=== PATIENT | female | born 1955 | race Caucasian/White ===

== ENCOUNTER 2019-12-03 00:13 | Outpatient (CLI) | payer OTHER, SELFPAY ==
[2019-12-03 18:54] LABS: SARS-CoV-2 RNA PCR Negative
== END 2019-12-03 00:14 | disposition home or self-care (01) ==
LOC: ANHCOVIDDT 00:13
PROVIDERS: PCP Family Medicine Adolescent Medicine; Visit Provider Internal Medicine Gastroenterology
DX: Z01.818 Encounter for other preprocedural examination (principal); Z11.59 Encounter for screening for other viral diseases
CPT/HCPCS: 87635; C9803; U0003

== ENCOUNTER → 2020-11-19 11:17 | Outpatient (CLI) | payer OTHER, SELFPAY ==
--- NOTE | ~2020-11-19 | MM_ITS ---
EXAMINATION: MM screening [facility] BI w alex HISTORY: Screening mammogram TECHNIQUE: Craniocaudal and mediolateral oblique 3-D tomosynthesis images were obtained and synthetic 2-D images were generated. CAD analysis was submitted and interpreted. COMPARISON: 12/19/2017, 06/21/2016 BREAST PARENCHYMAL COMPOSITION: There are scattered areas of fibroglandular density. FINDINGS: RIGHT BREAST: There is no evidence of suspicious mass, calcification, or architectural distortion to suggest malignancy. There has been no significant interval change. LEFT BREAST: An asymmetry is present in the middle third of the upper breast 7 cm from the nipple on the mediolateral oblique view. IMPRESSION: 1. Left breast asymmetry. 2. Additional mammographic views and possible breast ultrasound are recommended. BI-RADS Category 0: Incomplete: Needs additional imaging evaluation. Reviewed, dictated and finalized at location A. IMPRESSION: 1. Left breast asymmetry. 2. Additional mammographic views and possible breast ultrasound are recommended . BI-RADS Category 0: Incomplete: Needs additional imaging evaluation.
== END ==
PROVIDERS: PCP Family Medicine Adolescent Medicine; Visit Provider Family Medicine Adolescent Medicine
DX: Z12.31 Encounter for screening mammogram for malignant neoplasm of breast (principal); R92.8 Other abnormal and inconclusive findings on diagnostic imaging of breast
CPT/HCPCS: 77063; 77067

== ENCOUNTER → 2020-12-18 07:46 | Outpatient (CLI) | payer OTHER, SELFPAY ==
--- NOTE | ~2020-12-18 | MM_ITS ---
EXAMINATION: MM diagnostic mammo unilat LT HISTORY: Left breast asymmetry on screening mammogram TECHNIQUE: Additional 3-D tomosynthesis images of the left breast were performed and synthetic 2-D im ages were generated. CAD analysis was submitted and interpreted. COMPARISON: 11/19/2020, 12/19/2017, 06/21/2016 FINDINGS: There is a return to baseline fibroglandular appearance with spot compression of the left b reast in the area questioned on screening mammogram. IMPRESSION: 1. No mammographic evidence of malignancy. 2. Recommend routine screening mammography in one year. BI-RADS Category 1: Negative Reviewed, dictated and finalized at location A.
== END ==
PROVIDERS: PCP Family Medicine Adolescent Medicine; Visit Provider Physician Assistant
DX: N64.89 Other specified disorders of breast (principal)
CPT/HCPCS: 77065

== ENCOUNTER 2021-01-20 01:54 | Day surgery (SDC) | payer OTHER, SELFPAY ==
[2021-01-19 10:45] VITALS: BMI 32.6
[2021-01-20] VITALS (9 sets, daily range): BP systolic 124–153; BP diastolic 72–86; PULSE 59–70; RESP 15–19; TEMP 36.2–36.4; O2SAT 94–98; BMI 34.0
--- NOTE | 2021-01-20 08:49 | P.SEDATION_ITS ---
Moderate Sedation Note-Pt Data Patient Data Allergies Allergy/AdvReac Type Severity Reaction Status Date / Time iodine Allergy Unknown difficulty Verified 11/29/19 09:15 breathy, hives Contrast Media Allergy Unknown Difficulty Uncoded 11/29/19 09:15 Breathing, hives Home Medications Medication Instructions Recorded Confirmed Type amlodipine 5 mg tablet 5 mg PO DAILY 06/12/19 01/19/21 History lisinopril 40 mg tablet 40 mg PO DAILY 06/12/19 01/19/21 History metoprolol succinate 100 mg 100 mg PO DAILY 06/12/19 01/19/21 History capsule sprinkle, ext. release 24 hr atorvastatin 10 mg PO DAILY 11/29/19 01/19/21 History cetirizine [Zyrtec] 10 mg PO DAILY 11/29/19 01/19/21 History levothyroxine 100 mcg PO DAILY 11/29/19 01/19/21 History lifitegrast [Xiidra] 1 drp OPHTHALMIC (EYE) BID 11/29/19 01/19/21 History isosorbide mononitrate [Imdur] 30 mg PO DAILY 01/19/21 01/19/21 History Current Medications: Active Medications Sodium Chloride (Normal Saline Iv) 500 mls @ 100 mls/hr IV CONT .Q5H ALYX Sedation/Anesthesia: No previous sedation/anesthesia problems (including family history). [facility] Past Medical History Medical History Hypertension Surgical History Surgical History History of arthroscopy of knee -2008,2010, , History of cholecystectomy Family History Family History Father Family history of diabetes mellitus in first degree relative Cancer Mother Hypertension Heart disease Social History Social History Smoking status: Never smoker Alcohol intake: never Substance use type: does not use Living arrangements: alone Gender identity (if verbalized by the patient): Female Sexual Orientation (if Verbalized by the Patient): Straight or Heterosexual Spiritual care concerns: No Mod Sed Physical Exam Physical Exam Pre Procedural Exam: Normal: Airway Hours since solid foods: 10 Hours since liquid intake: 10 Mallampati Classification: class II Internal Medicine - PN: Obj Da Vital Signs Vital Signs: Vital Signs - 24 hr 01/20/21 07:35 Temperature 36.4 C L Pulse Rate 66 Respiratory Rate 18 Blood Pressure 140/86 Pulse Oximetry 98 Meds/Results Medications: Active Medications Generic Name Dose Route Start Last Admin Trade Name Freq PRN Reason Stop Dose Admin Sodium Chloride 500 mls @ 100 mls/hr 01/20/21 07:00 Normal Saline Iv IV CONT .Q5H [facility] ASA Classification/Sedation ASA Classification/Sedation ASA Class: II Emergent: No Risks: Risks, benefits and alternatives explained and patient/family accepted plan for sedation. Patient re-evaluated immediately prior to sedation.
--- NOTE | 2021-01-20 08:49 | WPDHPUPDATE1 ---
History and Physical Update Update Date/Time: 01/20/21 08:49 History and Physical has been reviewed, including an updated exam of the patient. There are NO changes in the patient's condition. Risks, benefits, and alternatives have been discussed and questions answered. Patient agrees to proceed with procedure.
--- NOTE | 2021-01-20 09:15 | WPDCARDPROC ---
Cardiac Cath Procedure Note Date of procedure:: 01/20/21 Performing physician:: Chai Chacon MD Procedure Procedure note:: LEFT HEART CATHETERIZATION AND CORONARY ANGIOGRAM REPORT DATE OF PROCEDURE: 01/20/2021 INDICATION FOR PROCEDURE: Recurrent chest pain, abnormal MPI BRIEF CLINICAL HISTORY: 65-year-old female with hypertension, type 2 diabetes mellitus, dyslipidemia. Patient has been experiencing symptoms of chest pain since March 2019. She had MPI done on 11/30/2019 which reportedly showed normal LVEF, mild, small reversible defect in the mid anterior segment and apical anterior segment. Patient was initially managed medically, however, she continued to have recurrent chest discomfort despite being on optimal medical treatment including anti anginal medications. Due to recurrent chest discomfort, coronary angiogram was recommended to rule out significant obstructive CAD. Benefits and risks of the procedure were discussed with the patient in depth, and informed consent was obtained prior to the procedure. Risks of the procedure include but are not limited to vascular complications including groin hematoma, retroperitoneal bleed, vessel perforation; periprocedural [place], cardiac arrhythmias, stroke, contrast induced nephropathy, and . After discussing all the benefits, risks and alternatives, patient was willing to proceed with the procedure. PROCEDURES PERFORMED: 1. Left heart catheterization- Selective left and right coronary angiogram; left ventriculogram and hemodynamic assessment 2. Selective right common femoral angiogram and deployment of Angio-Seal hemostatic device 3. Moderate sedation-CPT code 84901 MODERATE SEDATION: Midazolam 2 mg; fentanyl 50 mcg; Start time 0842 , Stop time 0910 ; Total [id number] time 28 minutes; Roxie Billy RN was trained observer for moderate sedation. ACCESS SITE: Right common femoral artery PROCEDURE NOTE: After obtaining informed consent, patient was brought to catheterization lab and prepped and draped in a usual sterile manner. After local anesthesia with lidocaine, right common femoral artery access was taken with micropuncture needle followed by insertion of a 6 Japanese sheath. Selective left and right coronary angiogram was performed using 5 Japanese JL4 and JR4 catheters respectively. Orthogonal views were taken. Next, a 5 Japanese pigtail catheter was advanced in the LV cavity and was flushed with normal saline. LV pressure measurement was performed. After this, left ventriculogram was performed. The catheter was flushed again, and gradient across the aortic valve was measured on the pullback of the catheter. Finally, selective right common femoral angiogram was performed followed by successful deployment of Angio-Seal vascular closure device. Patient tolerated procedure well without any immediate procedure related complications. FINDINGS: LEFT MAIN CORONARY: The left main coronary artery is a large caliber, relatively short vessel without significant focal stenosis. LEFT ANTERIOR DESCENDING ARTERY: The LAD is a medium to large caliber, tortuous vessel, tapers distally and reaches LV apex. No significant focal stenosis seen in the LAD or its diagonal branches. LEFT CIRCUMFLEX ARTERY: The left circumflex artery is a large caliber, codominant vessel; gives rise to large caliber tortuous OM branch and LPDA without significant focal stenosis. RIGHT CORONARY ARTERY: A medium caliber vessel, gives rise to small to medium caliber PDA and PLV branches which are very tortuous . RCA and its branches are without significant focal stenosis. LEFT VENTRICULOGRAM: frequent ventricular ectopy was seen during left ventriculogram, ejection fraction more than 70%. LVEDP 13 mmHg. HEMODYNAMIC ASSESSMENT: Opening pressure 133/67 mmHg , closing pressure 149/64 mmHg , LVEDP 13 mmHg , no significant gradient across aortic valve on the pullback of pigtail catheter. RIGHT COMMON FEMORAL ARTERY: Pa
--- NOTE | 2021-01-20 10:43 | SUR.PHASEII ---
Lunch ordered for patient as requested.
--- NOTE | 2021-01-20 13:05 | SUR.PHASEII ---
DISCHARGE INSTRUCTIONS GIVEN AND REVIEWED W/ PT. QUESTIONS ANSWERED. VOICED UNDERSTANDING OF ALL. NO CHANGE IN STATUS OF R. GROIN SITE. R. PEDAL PULSE PALP STRONG. DISCHARGED HOME, OUT VIA WC WITH ALL PERSONAL BELONGINGS AND DISCHARGE PACKET TO DAUGHTER'S WAITING CAR.
== END 2021-01-20 13:05 | disposition home or self-care (01) ==
PROVIDERS: PCP Family Medicine Adolescent Medicine; Visit Provider Internal Medicine Cardiovascular Disease
PROC: 4A023N7 Measurement of Cardiac Sampling and Pressure, Left Heart, Percutaneous Approach (ICD-10-PCS; CPT 93452; principal; 2021-01-20 08:30)
DX: I77.1 Stricture of artery (principal); R07.89 Other chest pain; I10 Essential (primary) hypertension; E78.5 Hyperlipidemia, unspecified; E11.9 Type 2 diabetes mellitus without complications; Z90.49 Acquired absence of other specified parts of digestive tract; I20.9 Angina pectoris, unspecified; Z79.82 Long term (current) use of aspirin
CPT/HCPCS: 93458; C1760; C1887; C1894; G0269; J1644; J2250; J3010; J7040

== ENCOUNTER 2021-06-22 00:13 | Day surgery (SDC) | payer OTHER, SELFPAY ==
[2021-06-10 09:29] VITALS: BMI 33.4
[2021-06-22 11:17] VITALS: BP 143/82; PULSE 54; RESP 16; TEMP 37.1; O2SAT 99; BMI 33.3
--- NOTE | 2021-06-22 11:26 | WPDANESEPPF ---
Anes - Initial Pre Proc Eval Procedure: Operation Date: 06/22/21 12:30 Proposed Procedures p Screening Colonoscopy - Jeronimo Chavira MD Date/Time: 06/22/21 11:26 Surgeon: Jeronimo Chavira MD Pre Op Diagnosis: family hx of colon ca Patient Data Age: 66 Gender: F Height: 1.6 m Weight: 85.4 kg Last Vital Signs Temp 37.1 C 06/22/21 11:17 Pulse 54 L 06/22/21 11:17 Resp 16 06/22/21 11:17 BP 143/82 H 06/22/21 11:17 Pulse Ox 99 06/22/21 11:17 Allergies Allergy/AdvReac Type Severity Reaction Status Date / Time iodine Allergy Severe difficulty Verified 06/22/21 11:16 breathy, hives Contrast Media Allergy Unknown Difficulty Uncoded 06/22/21 11:16 Breathing, hives Home Medications Medication Instructions Recorded Confirmed Type amlodipine 5 mg tablet 5 mg PO DAILY 06/12/19 06/22/21 History lisinopril 40 mg tablet 40 mg PO DAILY 06/12/19 06/22/21 History metoprolol succinate 100 mg 100 mg PO DAILY 06/12/19 06/22/21 History capsule sprinkle, ext. release 24 hr Xiidra 1 drp OPHTHALMIC (EYE) BID 11/29/19 06/22/21 History Zyrtec 10 mg PO DAILY 11/29/19 06/22/21 History levothyroxine 100 mcg PO DAILY 11/29/19 06/22/21 History isosorbide mononitrate 30 mg PO DAILY 01/19/21 06/22/21 History aspirin 81 mg PO DAILY 06/10/21 06/22/21 History atorvastatin 40 mg PO DAILY 06/10/21 06/22/21 History meloxicam 15 mg PO DAILY 06/10/21 06/22/21 History Patient hx anesthesia problems: none Family hx anesthesia problems: none Results Review: All pre-operative results and documents have been reviewed as part of the pre-operative evaluation. [facility] [place] Past Medical History Medical History (Updated 06/22/21 @ 11:28 by Parrish Beach MD) Hyperlipidemia Hypertension Obesity Surgical History Surgical History History of arthroscopy of knee -2008,2010, -2010, History of cholecystectomy Family History Family History Father Family history of diabetes mellitus in first degree relative Cancer Mother Hypertension Heart disease Social History Social History Smoking status: Never smoker Alcohol intake: never Substance use: never Substance use type: does not use Living arrangements: alone Gender identity (if verbalized by the patient): Female Sexual Orientation (if Verbalized by the Patient): Straight or Heterosexual Spiritual care concerns: No Anes - Eval Final PreProcedure Day of Procedure 06/22/21 11:26 Patient weight: obese Heart: regular rate and rhythm Lungs: clear to auscultation Airway: Mallampati scale class II Neurological: alert and oriented Last oral intake: >/= 8 hours ASA classification: III Emergent: no Anesthetic plan: proceed Anesthesia type and monitoring: general GIVS and standard monitoring Results Review: All pre-operative results and documents have been reviewed as part of the pre-operative evaluation. Informed Consent: The patient's anesthetic plan and its attendant risks and benefits were discussed with the patient/family/POA. Questions were solicited and answers provided to the satisfaction of the patient/family/POA.
[2021-06-22] MEDS: LACTATED RINGERS 1,000 ML 150 ML IV CONT (11:27)
--- NOTE | 2021-06-22 11:36 | WPDGICN ---
Assessment and Plan Assessment and plan (1) Family hx of colon cancer: Code(s): Z80.0 - Family history of malignant neoplasm of digestive organs Status: Acute Assessment and Plan: Patient has a family history of colon cancer with to close family members having cancer of the colon. Plan is for surveillance colonoscopy now and suggested a 5 year intervals. GI Consult Note Consult date/time: 06/22/21 11:36 HPI: Judith Marks is a 66 year old female Presents for screening colonoscopy. Patient's current weight appetite bowel movements are normal. Her family history is significant for 2 close family members with colon cancer. Patient's most recent colonoscopy 2014 was unremarkable. Patient states that her current weight appetite bowel movements are normal. She denies abdominal pain. She has had no bleeding. Review of Systems Review of Systems: All systems reviewed & are unremarkable except as noted in HPI and below PMFSH Past Medical History Medical History (Updated 06/22/21 @ 11:38 by Jeronimo Chavira MD) Hyperlipidemia Hypertension Obesity Surgical History Surgical History History of arthroscopy of knee 7-2008,6- 2010, -2010, History of cholecystectomy Family History Family History Father Family history of diabetes mellitus in first degree relative Cancer Mother Hypertension Heart disease Social History Social History Smoking status: Never smoker Alcohol intake: never Substance use: never Substance use type: does not use Living arrangements: alone Gender identity (if verbalized by the patient): Female Sexual Orientation (if Verbalized by the Patient): Straight or Heterosexual Spiritual care concerns: No Meds Home Medications and Allergies Home Medications Medication Instructions Recorded Confirmed Type amlodipine 5 mg tablet 5 mg PO DAILY 06/12/19 06/22/21 History lisinopril 40 mg tablet 40 mg PO DAILY 06/12/19 06/22/21 History metoprolol succinate 100 mg 100 mg PO DAILY 06/12/19 06/22/21 History capsule sprinkle, ext. release 24 hr Xiidra 1 drp OPHTHALMIC (EYE) BID 11/29/19 06/22/21 History Zyrtec 10 mg PO DAILY 11/29/19 06/22/21 History levothyroxine 100 mcg PO DAILY 11/29/19 06/22/21 History isosorbide mononitrate 30 mg PO DAILY 01/19/21 06/22/21 History aspirin 81 mg PO DAILY 06/10/21 06/22/21 History atorvastatin 40 mg PO DAILY 06/10/21 06/22/21 History meloxicam 15 mg PO DAILY 06/10/21 06/22/21 History Allergies Allergy/AdvReac Type Severity Reaction Status Date / Time iodine Allergy Severe difficulty Verified 06/22/21 11:16 breathy, hives Contrast Media Allergy Unknown Difficulty Uncoded 06/22/21 11:16 Breathing, hives Vital Signs Vital Signs - 24 hr 06/22/21 11:17 Temperature 98.7 F Pulse Rate 54 L Respiratory Rate 16 Blood Pressure 143/82 H Pulse Oximetry 99 Exam Narrative: Physical exam reveals patient to be alert. Vital signs stable. HEENT exam is unremarkable. Patient is anicteric. Heart is without murmur or extra sounds. Abdominal exam bowel sounds are present soft nontender with no hepatosplenomegaly. Digital external rectal exam is normal.
[2021-06-22 12:04] VITALS: BP 99/56; PULSE 54; RESP 16; O2SAT 95
[2021-06-22 12:14] VITALS: BP 104/63; PULSE 52; RESP 21; O2SAT 97
[2021-06-22 12:24] VITALS: BP 125/70; PULSE 50; RESP 21; O2SAT 97
== END 2021-06-22 12:45 | disposition home or self-care (01) ==
PROVIDERS: PCP Family Medicine Adolescent Medicine; Visit Provider Internal Medicine Gastroenterology
PROC: 0DJD8ZZ Inspection of Lower Intestinal Tract, Via Natural or Artificial Opening Endoscopic (ICD-10-PCS; CPT 45378; principal; 2021-06-22 12:30)
DX: Z12.11 Encounter for screening for malignant neoplasm of colon (principal); Z80.0 Family history of malignant neoplasm of digestive organs; D12.3 Benign neoplasm of transverse colon; I10 Essential (primary) hypertension; E78.5 Hyperlipidemia, unspecified; E03.9 Hypothyroidism, unspecified; Z79.82 Long term (current) use of aspirin; E66.9 Obesity, unspecified; Z68.33 Body mass index [BMI] 33.0-33.9, adult
CPT/HCPCS: 45385; 88305; J2001; J2704; J7120

== ENCOUNTER → 2022-02-04 15:45 | Outpatient (CLI) | payer OTHER, SELFPAY ==
--- NOTE | ~2022-02-04 | XR_ITS ---
EXAMINATION: XR chest 2V DATE: 02/04/2022 16:01 INDICATION: Dyspnea TECHNIQUE: PA and lateral views of the chest were obtained. COMPARISON: None FINDINGS: The lungs are clear with no focal airspace opacities, pulmonary edema, pleural effusion or pneumothor ax. The cardiomediastinal silhouette is normal. Thoracic kyphosis with mild anterior wedging of a few mid thoracic vertebral bodies and moderate spondylosis. Cholecystectomy clips in the right upper eufemia drant. IMPRESSION: 1. No acute cardiopulmonary disease. Reviewed, dictated and finalized at location A.
== END ==
PROVIDERS: PCP Family Medicine Adolescent Medicine; Visit Provider Family Medicine Adolescent Medicine
DX: R06.00 Dyspnea, unspecified (principal)
CPT/HCPCS: 71046

== ENCOUNTER 2022-02-20 08:13 | Emergency (ER) | payer OTHER, SELFPAY ==
--- NOTE | 2022-02-20 08:15 | ED.SKABFB ---
HPI - Skin/Abscess/Foreign Bdy General Chief complaint: Skin/Abscess/Foreign Body Stated complaint: Pt states she was stung by a Yellow Jacket Bee Time Seen by Provider: 02/20/22 08:14 Source: patient Mode of arrival: ambulatory Limitations: no limitations History of Present Illness HPI narrative: Ms. Marks is a 66-year-old female patient presenting to the clinic today with complaints of being stung by a yellow jacket. She reports she was stung on her right ear, right elbow, and left hand. States this occurred last night. She has swelling to the right ear, right elbow, and left hand in between her first and second fingers. Reports that this is very itchy and mildly painful. She denies any respiratory distress, tongue swelling, or difficulty swallowing. Related Data Home Medications Medication Instructions Recorded Confirmed metoprolol succinate 100 mg 100 mg PO DAILY 06/12/19 02/20/22 capsule sprinkle, ext. release 24 hr lifitegrast 5 % eye drops in a 1 drp ophthalmic (eye) BID 11/29/19 02/20/22 dropperette (Xiidra) isosorbide mononitrate 30 mg 30 mg PO DAILY 01/19/21 02/20/22 tablet,extended release 24 hr aspirin 81 mg capsule 81 mg PO DAILY 06/10/21 02/20/22 atorvastatin 40 mg tablet 40 mg PO DAILY 06/10/21 02/20/22 sodium chloride 5 % eye ointment 1 applic EACH EYE DAILY 02/03/22 02/20/22 (Sulema 128) amlodipine 5 mg tablet 5 mg PO DAILY 02/20/22 02/20/22 levothyroxine 100 mcg tablet 100 mcg PO DAILY 02/20/22 02/20/22 lisinopril 40 mg tablet 40 mg PO DAILY 02/20/22 02/20/22 meloxicam 15 mg tablet 15 mg PO DAILY 02/20/22 02/20/22 Allergies Allergy/AdvReac Type Severity Reaction Status Date / Time iodine Allergy Severe difficulty Verified 02/20/22 08:19 breathy, hives Contrast Media Allergy Unknown Difficulty Uncoded 02/20/22 08:19 Breathing, hives Review of Systems Review of Systems: Pertinent positives per HPI. Patient denies any fever, chills, rash, headache, visual changes, dizziness, cough, runny nose, sore throat, shortness of breath, chest pain, palpitations, nausea, vomiting, diarrhea, constipation, abdominal pain, or any urinary issues. [facility] Past Medical History Medical History Hyperlipidemia Hypertension Obesity Surgical History Surgical History History of arthroscopy of knee -2008,2010, , History of cholecystectomy Family History Family History Father Family history of diabetes mellitus in first degree relative Cancer Carcinoma of colon Diabetes mellitus Heart disease Malignant neoplasm of prostate Mother Hypertension Heart disease Cerebrovascular accident Social History Social History Smoking status: Never smoker Second hand tobacco smoke exposure: No Alcohol intake: never Substance use: never Substance use type: does not use Gender identity (if verbalized by the patient): Female Sexual Orientation (if Verbalized by the Patient): Straight or Heterosexual Spiritual care concerns: No Agree to blood products: Yes Comments At the time of my signature, I reviewed and agree with the nursing past medical, surgical, social, and family history. There is no relevant family history pertinent to the patient complaint. Exam Narrative: General: Well-developed, well nourished, in no apparent distress Head: Normocephalic, atraumatic. Cardio: Regular rate and rhythm, s1 and s2 normal, no murmur appreciated. Resp: Clear to auscultation bilaterally, no rhonchi, rales, wheezing or rubs. Integumentary: Font[place], warm, and dry, intact without lesion, yellow jacket stings to the left hand in between the second and third knuckle/webbing, right ear swelling, and right elbow swe
[2022-02-20 08:22] VITALS: BP 135/88; PULSE 73; RESP 16; TEMP 36.8; O2SAT 98
[2022-02-20 08:25] VITALS: BP 135/88; PULSE 73; RESP 16; TEMP 36.8; O2SAT 98
== END 2022-02-20 08:32 | disposition home or self-care (01) ==
PROVIDERS: Emergency Provider Nurse Practitioner Family; PCP Family Medicine Adolescent Medicine
DX: T63.461A Toxic effect of venom of wasps, accidental (unintentional), initial encounter (principal); E78.5 Hyperlipidemia, unspecified; I10 Essential (primary) hypertension; E66.9 Obesity, unspecified; Z68.35 Body mass index [BMI] 35.0-35.9, adult; Z79.82 Long term (current) use of aspirin
CPT/HCPCS: 99213; G0463

== ENCOUNTER → 2022-03-17 13:11 | Outpatient (CLI) | payer OTHER, SELFPAY ==
--- NOTE | ~2022-03-17 | DEXA_ITS ---
Bone Density Report Name: LOCO MALONEY Age: 66 Sex: Female Ethnicity: White Date of : 1955 Indication: postmenopausal; screening for osteoporosis; Referring Provider: ARVIN COFFMAN Study: Bone densitometry was performed. Exam Date: March 17, 2022 Accession number: [id number] Bone Density: Region BMD T-score Z-score Classification AP Spine (L1-L4) 1.157 1.0 3.0 Normal Femoral Neck (Left) 0.734 -1.0 0.7 Normal Total Hip (Left) 1.026 0.7 2.1 Normal Femoral Neck (Right) 0.732 -1.1 0.7 Osteopenia Total Hip (Right) 0.997 0.4 1.9 Normal Total Hip Mean 1.012 0.6 2.0 Normal World Health Organization criteria for BMD impression classify patients as: Normal (T-score at or above -1.0), Osteopenia (T-score between -1.0 and -2.5), or Osteoporosis (T-score at or below -2.5). 10-year Fracture Risk(1): Major Osteoporotic Fracture 7.9% Hip Fracture 0.7% Reported Risk Factors: [place] (), Neck BMD=0.732, BMI=37.0 (1) FRAX(R) Version 3.08. Fracture probability calculated for an untreated patient. Fracture probability may be lower if the patient has received treatment. Clinical Information Provided by Patient: Patient maximum height was 63.0 Menopause Age: 51 Drinks caffeinated beverages Onset of menses at age 12 Number of children 3 Impression: The patient has low bone mass, based on the Right Femoral Neck T-score. The patient has an estimated ten-year risk of hip fracture of 0.7% and an estimated ten-year risk of major fracture of 7.9%, based on the WHO FRAX algorithm. Discussion: BONE DENSITY IS LOW AT ONE OR MORE SKELETAL SITES. This patient's lowest T-score is low at one or more skeletal sites. It meets the World Health Organization's (WHO) criteria for ?low bone mass? (T-score between -1.0 and -2.5). The patient's 10-year risk of fracture as calculated by FRAX is less than the threshold where pharmacological therapy is recommended by the National Osteoporosis Foundation (NOF). However, all treatment decisions require clinical judgment and consideration of individual patient factors, including patient preferences, comorbidities, previous drug use, risk factors not captured in the FRAX model (e.g., frailty, falls, vitamin D deficiency, increased bone turnover, interval significant decline in bone density) and possible under or overestimation of fracture risk by FRAX. The patient should follow a healthful lifestyle (good nutrition with adequate calcium and vitamin D, and appropriate weight-bearing exercise). Follow-Up: Consider repeating this study in 2 to 3 years to reassess this patient's status, or sooner if there is some new clinical indication. Reported by: NADIA on 03/17/2022 1:51:00 PM. Reviewed, dictated and finalized
--- NOTE | ~2022-03-17 | MM_ITS ---
EXAMINATION: MM screening [facility] BI w alex HISTORY: Screening TECHNIQUE: Craniocaudal and mediolateral oblique 3-D tomosynthesis images were obtained and synthetic 2-D images were generated. CAD analysis was submitted and interpreted. COMPARISON: Comparison to multiple prior studies sequentially, with oldest reviewed study dated 06/21. BREAST PARENCHYMAL COMPOSITION: Breast composed of scattered areas of fibroglandular density FINDINGS: The right breast is stable without evidence for malignancy. There are 2 small masses in the upper outer quadrant of the left breast anteriorly which are slightly more prominent than on prior e xamination. IMPRESSION: 1. Left breast masses upper outer quadrant anteriorly. 2. Additional mammographic views and possible breast ultrasound are recommended. BI-RADS Category 0: Incomplete: Needs additional imaging evaluation. Reviewed, dictated and finalized at location A. IMPRESSION: 1. Left breast masses upper outer quadrant anteriorly. 2. Additional mammographic views and possible breast ultrasound are recommended . BI-RADS Category 0: Incomplete: Needs additional imaging evaluation.
== END ==
PROVIDERS: PCP Family Medicine Adolescent Medicine; Visit Provider Physician Assistant
DX: Z12.31 Encounter for screening mammogram for malignant neoplasm of breast (principal); R92.8 Other abnormal and inconclusive findings on diagnostic imaging of breast; Z78.0 Asymptomatic menopausal state; M85.851 Other specified disorders of bone density and structure, right thigh
CPT/HCPCS: 77063; 77067; 77080

== ENCOUNTER → 2022-04-01 08:59 | Outpatient (CLI) | payer OTHER, SELFPAY ==
--- NOTE | ~2022-04-01 | MMUS_ITS ---
EXAMINATION: MM diagnostic kassie LT w alex, US breast LT limited HISTORY: Left breast mass on screening mammogram TECHNIQUE: Additional 3-D tomosynthesis images of the left breast were performed and synthetic 2-D im ages were generated. CAD analysis was submitted and interpreted. High resolution limited left breast ultrasound was performed. COMPARISON: 03/17/2022, 12/18/2020, 11/19/2020 FINDINGS: MAMMOGRAPHIC FINDINGS: There is an approximately 9 mm low-density mass in the anterior/middle third of the outer breast at t he 3:00 location 4.5 cm from the nipple. With spot compression, the mass has a similar appearance to the 2020 comparison diagnostic mammogram. ULTRASOUND: There are cysts measuring 3 mm and 2 mm at the 2:00 location near the nipple. No sonographic correlat e is identified for the mammographically detected mass. IMPRESSION: 1. Probably benign left breast mass. 2. Recommend 6 month follow-up left diagnostic mammogram and possible ultrasound. BI-RADS category 3, probably benign findings. Reviewed, dictated and finalized at location A. IMPRESSION: 1. Probably benign left breast mass. 2. Recommend 6 month follow-up left diagnostic mammogram and possible ultrasoun d. BI-RADS category 3, probably benign findings.
== END ==
PROVIDERS: PCP Family Medicine Adolescent Medicine; Visit Provider Physician Assistant
DX: R92.8 Other abnormal and inconclusive findings on diagnostic imaging of breast (principal)
CPT/HCPCS: 76642; 77061; 77065; G0279

== ENCOUNTER 2022-06-28 09:54 | Outpatient (CLI) | payer OTHER, SELFPAY | END 2022-06-28 09:55 | disposition home or self-care (01) | LOC: ANHAUDIO 09:55 | PROVIDERS: PCP Family Medicine Adolescent Medicine; Visit Provider Family Medicine Adolescent Medicine | DX: H90.3 Sensorineural hearing loss, bilateral (principal) | CPT/HCPCS: 92557; 92567 ==

== ENCOUNTER → 2022-11-18 12:11 | Outpatient (CLI) | payer OTHER, SELFPAY ==
--- NOTE | ~2022-11-18 | XR_ITS ---
EXAMINATION: XR hand LT 2V INDICATION: Chronic pain and swelling of the hand TECHNIQUE: Two views of left hand are obtained. COMPARISON: None available FINDINGS: Bone alignment is normal. There is no fracture. There is mild osteoarthritis of the interph alangeal joints. The soft tissues are unremarkable. IMPRESSION: 1. Polyarticular osteoarthritis without acute osseous abnormality. Reviewed, dictated and finalized at location A.
--- NOTE | ~2022-11-18 | XR_ITS ---
EXAMINATION: XR hand RT 2V INDICATION: Chronic right hand pain TECHNIQUE: Two views of the right hand are obtained. COMPARISON: None available FINDINGS: Bone alignment is normal. There is no fracture. There is mild osteoarthritis of the interph alangeal joints. The soft tissues are unremarkable. IMPRESSION: 1. Polyarticular osteoarthritis without acute osseous abnormality. Reviewed, dictated and finalized at location A.
== END ==
PROVIDERS: PCP Family Medicine Adolescent Medicine; Visit Provider Nurse Practitioner Family
DX: M19.041 Primary osteoarthritis, right hand (principal); M19.042 Primary osteoarthritis, left hand
CPT/HCPCS: 73120

== ENCOUNTER → 2023-07-05 14:21 | Outpatient (CLI) | payer OTHER, SELFPAY ==
--- NOTE | ~2023-07-05 | MMUS_ITS ---
EXAMINATION: MM diagnostic kassie BI w alex, US breast LT limited HISTORY: Follow-up left breast mass. TECHNIQUE: Additional 3-D tomosynthesis images of the breasts were performed and synthetic 2-D images were generated. CAD analysis was submitted and interpreted. High resolution Limited left breast ultr asound was performed. COMPARISON: Comparison to multiple prior studies sequentially, with oldest reviewed study dated 06/21. BREAST PARENCHYMAL COMPOSITION: Breast composed of scattered areas of fibroglandular density FINDINGS: MAMMOGRAPHIC FINDINGS: There are no suspicious masses, calcifications or architectural distortion in either breast to sugges t malignancy. ULTRASOUND: Limited left breast ultrasound: At 2:00, 0.5 cm from the nipple there is a 3 mm cyst. No sonographic evidence for malignancy. IMPRESSION: 1. No evidence for malignancy in either breast. 2. Routine yearly screening mammogram and regular clinical breast examination are recommended. BI-RADS Category 2: Benign finding(s). Reviewed, dictated and finalized at location A. BASIS CONSULTANT IMPRESSION: 1. No evidence for malignancy in either breast. 2. Routine yearly screening mammogram and regular clinical breast examination a re recommended. BI-RADS Category 2: Benign finding(s).
== END ==
PROVIDERS: PCP Nurse Practitioner Family; Visit Provider Nurse Practitioner Family
DX: R92.8 Other abnormal and inconclusive findings on diagnostic imaging of breast (principal); N60.02 Solitary cyst of left breast
CPT/HCPCS: 76642; 77062; 77066; G0279

== ENCOUNTER 2023-12-13 11:00 | Outpatient (RCR) | payer OTHER, SELFPAY ==
[2023-12-13 11:04] VITALS: BMI 37.1
[2023-12-13 15:26] VITALS: BMI 37.1
== END 2024-03-05 10:23 | disposition home or self-care (01) ==
LOC: ANHDMC 11:00
PROVIDERS: PCP Nurse Practitioner Family; Visit Provider Family Medicine Adolescent Medicine
DX: E11.65 Type 2 diabetes mellitus with hyperglycemia (principal); Z71.3 Dietary counseling and surveillance
CPT/HCPCS: 97802

== ENCOUNTER 2023-12-14 14:35 | Outpatient (CLI) | payer OTHER, SELFPAY ==
--- NOTE | ~2023-12-14 | XR_ITS ---
XR lumbar spine 2-3V 12/14/2023 14:52 Indication: Low back pain after recent fall Procedure: 3 views lumbar spine Comparison: No prior studies for comparison. Findings: There is advanced facet hypertrophy at L4-5 and L5-S1. There is grade 1 spondylolisthesis a t L4-5. There is disc narrowing at all lumbar levels. No acute fracture or traumatic malalignment. Th ere is mild levocurvature of the thoracolumbar spine. There are cholecystectomy clips. Pedicles intac t. Sacral foramen are symmetric. Impression: 1: Moderate-severe lumbar spondylosis. Reviewed, dictated and finalized at location B. Impression: 1: Moderate-severe lumbar spondylosis.
== END 2023-12-14 14:36 ==
PROVIDERS: PCP Family Medicine Adolescent Medicine; Visit Provider Family Medicine Adolescent Medicine
DX: M54.50 Low back pain, unspecified (principal); M43.06 Spondylolysis, lumbar region
CPT/HCPCS: 72100

== ENCOUNTER 2024-09-19 08:42 | Outpatient (CLI) | payer OTHER, SELFPAY ==
--- NOTE | ~2024-09-19 | MR_ITS ---
MRI of the brain Clinical History: Headache Technique: Axial and sagittal T1-weighted images were acquired. These were followed by axial T2-weigh genevieve, diffusion weighted, gradient, and FLAIR images. Findings: No significant signal abnormality seen in the brain parenchyma. No acute infarct, intracran ial hemorrhage, or mass lesion. Ventricles and subarachnoid spaces are unremarkable. Orbits are unremarkable. Paranasal sinuses and m astoid air cells are clear. Major intracranial flow voids are intact. Sagittal midline structures are intact. IMPRESSION: Normal exam. Reviewed, dictated and finalized at location M. IMPRESSION: Normal exam.
== END 2024-09-19 08:43 | disposition home or self-care (01) ==
LOC: MICIMG 08:43
PROVIDERS: PCP Family Medicine Adolescent Medicine; Visit Provider Family Medicine Adolescent Medicine
DX: R51.9 Headache, unspecified (principal)
CPT/HCPCS: 70551

== ENCOUNTER 2025-02-19 10:54 | Outpatient (CLI) | payer OTHER, SELFPAY ==
--- NOTE | ~2025-02-19 | MM_ITS ---
EXAMINATION: MM screening kassie BI w alex HISTORY: Screening TECHNIQUE: Craniocaudal and mediolateral oblique 3-D tomosynthesis images were obtained and synthetic 2-D images were generated. CAD analysis was submitted and interpreted. COMPARISON: Mammogram 03/17/2022 BREAST PARENCHYMAL COMPOSITION: Not Dense: The breasts are almost entirely fatty. FINDINGS: There is no evidence of suspicious mass, calcification, or architectural distortion to suggest malignancy in either breast. [There has been no significant interval change. IMPRESSION: 1. No mammographic evidence of malignancy. Recommend routine screening mammography in one year. BI-RADS Category 1: Negative Reviewed, dictated, and finalized at Location A. Reviewed, dictated and finalized at location Q. IMPRESSION: 1. No mammographic evidence of malignancy. Recommend routine screening mammogra phy in one year. BI-RADS Category 1: Negative
--- NOTE | ~2025-02-19 | DEXA_ITS ---
Bone Density Report Name: LOCO MALONEY Age: 69 Sex: Female Ethnicity: White Date of : 1955 Indication: postmenopausal; screening for osteoporosis; Referring Provider: JOSE MARADIAGA Study: Bone densitometry was performed. Exam Date: February 19, 2025 Accession number: [id number] Bone Density: Region BMD T-score Z-score Classification AP Spine(L1-L4) 1.154 1.0 3.2 Normal Femoral Neck (Left) 0.714 -1.2 0.7 Osteopenia Total Hip (Left) 1.013 0.6 2.2 Normal Femoral Neck (Right) 0.745 -0.9 1.0 Normal Total Hip (Right) 1.017 0.6 2.2 Normal Total Hip Mean 1.015 0.6 2.2 Normal World Health Organization criteria for BMD impression classify patients as: Normal (T-score at or above -1.0), Osteopenia (T-score between -1.0 and -2.5), or Osteoporosis (T-score at or below -2.5). 10-year Fracture Risk(1): Major Osteoporotic Fracture 8.8% Hip Fracture 1.1% Reported Risk Factors: [place] (), Neck BMD=0.714, BMI=37.3 (1) FRAX(R) Version 3.08. Fracture probability calculated for an untreated patient. Fracture probability may be lower if the patient has received treatment. Previous Exams: -- Region Exam Age BMD T-score BMD Change BMD Change Date g/cm2 vs Baseline vs Previous -- AP Spine (L1-L4) 02/19/2025 69 1.154 1.0 -0.3%# -0.3%# 03/17/2022 66 1.157 1.0 Total Hip(Left) 02/19/2025 69 1.013 0.6 -1.2%# -1.2%# 03/17/2022 66 1.026 0.7 Total Hip(Right) 02/19/2025 69 1.017 0.6 2.1%# 2.1%# 03/17/2022 66 0.997 0.4 -- *Denotes significance at 95% confidence level, LSC for AP Spine = 0.022 g/cm2, LSC for Total Hip = 0.027 g/cm2 # Denotes dissimilar scan types or analysis methods Clinical Information Provided by Patient: Has used the following medications: Vitamin D, Calcium Patient maximum height was 63 Menopause Age: 51 No regular weight bearing exercise Does not regularly consume dairy products Drinks caffeinated beverages Onset of menses at age 11 Number of children 3 Impression: The patient has low bone mass, based on the Left Femoral Neck T-score. The patient has an estimated ten-year risk of hip fracture of 1.1% and an estimated ten-year risk of major fracture of 8.8%, based on the WHO FRAX algorithm. Unable to evaluate interval change due to the use of different scan modes. Discussion: BONE DENSITY IS LOW AT ONE OR MORE SKELETAL SITES. This patient's lowest T-score is low at one or more skeletal sites. It meets the World Health Organization's (WHO) criteria for ?low bone mass? (T-score between -1.0 and -2.5). The patient's 10-year risk of fracture as calculated by FRAX is less than the threshold where pharmacological therapy is recommended by the National Osteoporosis Foundation (NOF). However, all treatment decisions require clinical judgment and consideration of individual patient factors, including patient preferences, comorbidities, previous drug use, risk factors not captured in the FRAX model (e.g., frailty, falls, vitamin D deficiency, increased bone turnover, interval significant decline in bone density) and possible under or overestimation of fracture risk by FRAX. The patient should follow a healthful lifestyle (good nutrition with adequate calcium and vitamin D, and appropriate weight-bearing exercise). Follow-Up: Consider repeating this study in 2 to 3 years to reassess this patient's status, or sooner if there is some new clinical indication. Reported by: LILLIAN on 02/19/2025 11:18:00 AM. Reviewed, dictated and finalized at location A.
== END 2025-02-19 10:55 | disposition home or self-care (01) ==
LOC: MICIMG 10:56
PROVIDERS: PCP Family Medicine Adolescent Medicine; Visit Provider Family Medicine Adolescent Medicine
DX: Z12.31 Encounter for screening mammogram for malignant neoplasm of breast (principal); Z78.0 Asymptomatic menopausal state; M85.852 Other specified disorders of bone density and structure, left thigh
CPT/HCPCS: 77063; 77067; 77080